=== PATIENT | female | born 1990 ===

== ENCOUNTER 2019-03-14 11:17 | Observation (INO) | payer OTHER ==
[~2019-03-14] VITALS: Ht 157.5 cm; Wt 61.2 kg
[~2019-03-14 11:17] MED LIST: Bactrim Ds Tab1 EACH PO; Keflex500 MG PO
[2019-03-14 12:22] LABS: BASOPHILS ABSOLUTE AUTO 0.06 K/mm3 (0.00-0.23); BASOPHILS PERCENT AUTO 1 % (0-2); EOSINOPHILS ABSOLUTE AUTO 0.27 K/mm3 (0.00-0.68); EOSINOPHILS PERCENT AUTO 3 % (0-6); Hematocrit 40.6 % (33.0-51.0); Hemoglobin 13.3 g/dL (11.5-16.0); IMMATURE GRAN ABSOLUTE AUTO 0.02 K/mm3 (0.00-0.10); IMMATURE GRAN PERCENT AUTO 0 % (0-1); LYMPHOCYTES ABSOLUTE AUTO 1.91 K/mm3 (0.84-5.20); LYMPHOCYTES PERCENT AUTO 21 % (21-46); MONOCYTES ABSOLUTE AUTO 0.74 K/mm3 (0.16-1.47); MONOCYTES PERCENT AUTO 8 % (4-13); Mean Corpuscular HGB 30.9 pg (26.0-34.0); Mean Corpuscular HGB Conc 32.8 g/dL (31.5-36.5); Mean Corpuscular Volume 94 fL (80-100); Mean Platelet Volume 8.8 fL (9.1-12.4); NEUTROPHILS ABSOLUTE AUTO 6.06 K/mm3 (1.96-9.15); NEUTROPHILS PERCENT AUTO 67 % (41-73); Platelet Count 283 K/mm3 (150-400); RDW Coefficient Variation 13.2 % (11.7-14.2); RDW Standard Deviation 46.3 fL (35.1-46.3); Red Blood Cell Count 4.31 M/mm3 (3.80-5.20); White Blood Cell Count 9.06 K/mm3 (4.00-11.30)
[2019-03-14 12:39] LABS: Alanine Aminotransfer (ALT/SGP 58 U/L (12-78); Albumin/Globulin Ratio 0.8 (0.8-1.8); Alk Phos 87 U/L (50-136); Anion Gap 7 mmol/L (6-16); Aspartate Aminotrans (AST/SGOT 47 U/L (12-37); Bilirubin, Total 0.4 mg/dL (0.1-1.0); Blood Urea Nitrogen 12 mg/dL (8-24); Bun/Creatinine Ratio 18.7 (12.0-20.0); CO2, Blood 26 mmol/L (21-32); Calcium, Blood 8.8 mg/dL (8.5-10.1); Chloride, Blood 105 mmol/L (98-108); Creatinine, Blood 0.64 mg/dL (0.40-1.00); Globulin, Blood 4.8 g/dL (2.2-4.0); Glomerular Filtration Rate >60 (60-); Glucose, Blood 83 mg/dL (70-99); Potassium, Blood 4.2 mmol/L (3.5-5.5); Sodium, Blood 138 mmol/L (136-145); Total Protein, Blood 8.8 g/dL (6.4-8.2)
[2019-03-15] MEDS ORDERED: CLIN300 PO (16:41)
== END 2019-03-14 21:35 | disposition left against medical advice (07) ==
LOC: ER 11:17 → MEDS 11:18
PROVIDERS: Physician Assistant; ADMIT Surgery
DX: L02.11 Cutaneous abscess of neck (principal); F11.10 Opioid abuse, uncomplicated; F15.10 Other stimulant abuse, uncomplicated; F17.210 Nicotine dependence, cigarettes, uncomplicated
CPT/HCPCS: 36415; 70491; 80053; 83605; 85025; 96365-59; 96375; 99284-25; G0378; J1885; J3370; J7030; J7120; Q9967

== ENCOUNTER 2019-03-21 16:28 | Emergency (ER) | payer OTHER ==
[~2019-03-21] VITALS: Ht 157.5 cm; Wt 61.2 kg
[~2019-03-21 16:28] MED LIST changes: +CLIN300 PO
== END 2019-03-21 17:39 | disposition home or self-care (01) ==
LOC: ER 16:28
DX: Z47.89 Encounter for other orthopedic aftercare (principal); F17.210 Nicotine dependence, cigarettes, uncomplicated
CPT/HCPCS: 99282

== ENCOUNTER 2023-05-01 04:51 | Inpatient (IN) | payer OTHER ==
[2023-05-01] VITALS (15 sets, daily range): BP systolic 92–117; BP diastolic 59–87
[~2023-05-01] VITALS: Ht 154.9 cm; Wt 66.0 kg
[2023-05-01 06:36] LABS: Source, Urine Clean Catch
[2023-05-01 06:44] LABS: Appearance, Urine Cloudy (Clear); Bilirubin, Urine Neg (Neg); Blood, Urine Neg (Neg); Color, Urine Yellow (P-Yellow); Glucose Qualitative, Urine Neg (Neg); Ketones, Urine Neg (Neg); Leukocyte Esterase, Urine Neg (Neg); Nitrite, Urine Neg (Neg); Protein, Urine Neg (Neg); Urobilinogen, Urine NORM (Normal)
[2023-05-01 06:57] LABS: Amorphous Heavy (0-Heavy); Bacteria Mod /hpf
[2023-05-01 06:59] LABS: Squamous Epithelial Cells Mod /hpf (Few)
[2023-05-01 07:00] LABS: Red Blood Cells, Urine Not Seen /hpf (0-2); White Blood Cells, Urine 0-2 /hpf (0-5)
[2023-05-01 07:31] LABS: BASOPHILS ABSOLUTE AUTO 0.08 K/mm3 (0.00-0.23); BASOPHILS PERCENT AUTO 1 % (0-2); EOSINOPHILS ABSOLUTE AUTO 0.23 K/mm3 (0.00-0.68); EOSINOPHILS PERCENT AUTO 2 % (0-6); Hemoglobin 12.3 g/dL (11.5-16.0); IMMATURE GRAN ABSOLUTE AUTO 0.16 K/mm3 (0.00-0.10); IMMATURE GRAN PERCENT AUTO 1 % (0-1); LYMPHOCYTES ABSOLUTE AUTO 1.84 K/mm3 (0.84-5.20); LYMPHOCYTES PERCENT AUTO 13 % (21-46); MONOCYTES ABSOLUTE AUTO 1.01 K/mm3 (0.16-1.47); MONOCYTES PERCENT AUTO 7 % (4-13); Mean Corpuscular HGB 29.9 pg (26.0-34.0); Mean Corpuscular HGB Conc 34.2 g/dL (31.5-36.5); Mean Corpuscular Volume 88 fL (80-100); NEUTROPHILS ABSOLUTE AUTO 10.52 K/mm3 (1.96-9.15); NEUTROPHILS PERCENT AUTO 76 % (41-73); RDW Coefficient Variation 11.8 % (11.7-14.2); RDW Standard Deviation 37.8 fL (35.1-46.3); Red Blood Cell Count 4.11 M/mm3 (3.80-5.20); White Blood Cell Count 13.84 K/mm3 (4.00-11.30)
[2023-05-01 07:33] LABS: Mean Platelet Volume 8.3 fL (9.1-12.4); Platelet Count 434 K/mm3 (150-400)
[2023-05-01 07:43] LABS: Magnesium, Blood 2.2 mg/dL (1.6-2.4)
[2023-05-01 08:06] LABS: Alanine Aminotransfer (ALT/SGP 37 U/L (12-78); Albumin, Blood 3.1 g/dL (3.4-5.0); Albumin/Globulin Ratio 0.7 (0.8-1.8); Alk Phos 81 U/L (50-136); Anion Gap 5 mmol/L (6-16); Aspartate Aminotrans (AST/SGOT 24 U/L (12-37); Bilirubin, Direct <0.1 mg/dL (0.0-0.3); Bilirubin, Indirect Unable to Calculate mg/dL (0.1-0.7); Bilirubin, Total 0.2 mg/dL (0.1-1.0); Blood Urea Nitrogen 6 mg/dL (8-24); Bun/Creatinine Ratio 8.2 (12.0-20.0); CO2, Blood 30 mmol/L (21-32); Calcium, Blood 8.8 mg/dL (8.5-10.1); Chloride, Blood 105 mmol/L (98-108); Creatinine, Blood 0.74 mg/dL (0.40-1.00); Globulin, Blood 4.6 g/dL (2.2-4.0); Glomerular Filtration Rate 110 (60-); Glucose, Blood 103 mg/dL (70-99); Potassium, Blood 4.3 mmol/L (3.5-5.5); Sodium, Blood 140 mmol/L (136-145); Total Protein, Blood 7.7 g/dL (6.4-8.2)
--- NOTE | 2023-05-01 12:50 | NUR ---
ARRIVAL TO UNIT PT ARRIVED TO VIA . ABLE TO IND TRANSFER FROM TO RESTROOM TO BED. VOIDING. AOX4, FLAT AFFECT. ANSWERS QUESTIONS VAQUELY. REPORTED 6/10 PAIN, IN RLQ, WILL MEDICATE PER EMAR. VSS. PERF APPENDICITIS, PLAN FOR LAP APPY THIS SHIFT. REPORTS NO N/V. ORIENTED TO , CALL LIGHT WITHIN REACH.
--- NOTE | 2023-05-01 15:45 | NUR ---
PT TRANSFERRED OFF UNIT FOR PROCEDURE VIA JUAN MRETHEL
--- NOTE | 2023-05-01 16:13 | NUR ---
History, Chart, Medications and Allergies reviewed before start of procedure. Lungs clear T/O to Auscultation. Patient confirms NPO status and agrees with scheduled surgery. Pre-Op teaching done. Pt verbalizes understanding.
--- NOTE | 2023-05-01 18:56 | NUR ---
POSTOP ARRIVAL PT RETURNED TO VIA GURNEY FOLLOWING LAP APPY. VSS. AOX4. DROWSY, EASILY AROUSABLE. X3 LAP SITES W/ GAUZE & TEGADERM. YANA DRAIN IN RLQ, SS FLUID. RESTING WITH HER EYES CLOSED. REPORT GIVEN.
[2023-05-02 04:16] VITALS: BP 116/77
--- NOTE | 2023-05-02 05:42 | NUR ---
UNEVENTFUL NIGHT FOR PATIENT. PATIENT RESTED QUIETLY, OCCASIONALLY CALLED FOR PAIN MEDICATION. A/OX4, SPEECH WAS VERY MUMBLED, RARELY OPENED EYES DURING CONVERSATION. PATIENT WAS ABLE TO EXPRESS NEEDS, REQUESTED BEDPAN DUE TO ANESTHESIA MAKING HER FEEL LETHARGIC. YANA DRAIN TO LLQ OUTPUT SLOWED DOWN THE NIGHT WENT ON. VSS, CALL LIGHT WITHIN REACH, WILL CONTINUE TO MONITOR.
[2023-05-02 07:06] VITALS: BP 111/71
--- NOTE | 2023-05-02 09:20 | NUR ---
CARE GIVEN TO ULYSSES LEMONS.
--- NOTE | 2023-05-02 09:20 | NUR ---
AFTER GETTING REPORT FROM JOSE ARORA THIS NURSE IS ASSUMING CARE.
[2023-05-02 14:30] VITALS: BP 101/66
[2023-05-02 20:04] VITALS: BP 119/85
[2023-05-02 20:08] VITALS: BP 137/64
[2023-05-03 04:38] VITALS: BP 105/73
--- NOTE | 2023-05-03 05:04 | NUR ---
EOS NOTE PATIENT A/OX4, DROWSY THROUGHOUT THE NIGHT BUT ABLE TO MAKE NEEDS KNOWN. USED THE CALL LIGHT APPROPRIATELY, ASKED FOR PAIN MEDICATION TWICE. YANA EMPTIED ONCE AT EOS FOR A TOTAL OUTPUT FOR PM SHIFT OF 40ML. SURGICAL SITES ARE C/D/I, EXPRESSED THAT SHE WAS HOPING TO DC TODAY. VSS.
[2023-05-03 07:16] VITALS: BP 103/74
--- NOTE | 2023-05-03 10:34 | NUR ---
"Spiritual Care | Nurse request. Pt. is awake in bed and welcomes my visit. Pt. is a little unsettled about the segmental paver installer visit, but verbalizes graciously that she feels bloated and not up to a visit at this time. Pt. agreed to have this segmental paver installer visit later in the day. Updated the floor TRANSMISSION TECHNICIAN, and will remain available to the Pt."
[2023-05-03 14:51] VITALS: BP 112/83
[2023-05-03 18:52] VITALS: BP 122/89
[2023-05-04 04:33] VITALS: BP 99/63
--- NOTE | 2023-05-04 06:17 | NUR ---
EOS NOTE: PATIENT A/OX4, MAEE, AMBULATED HALLS X2, SHOWERED, EXPRESSED MILD DISCOMFORT BUT NO PAIN. YANA DRESSING C/D/I WNL. RESTED QUIETLY THROUGH THE NIGHT AND AMBULATED THROUGHOUT THE ROOM INDEPENDENTLY. NO BM'S BUT DID PASS GAS, MILD DISTENTION TO ABDOMEN NOTED. CONSISTENT WITH PREVIOUS SHIFTS DISTENTION, NO CHANGES NOTED. VSS. PATIETN IS HOPEFUL TO DC TODAY.
--- NOTE | 2023-05-04 06:57 | NUR ---
04/823 SHIFT SUMMARY PT SHOWED LITTLE IMPROVEMENT T/O SHIFT. SOAP SUDS ENEMA DONE AT APRX 1300, PT HAD 2 SMALL LIQUID STOOL FOLLOWING, MORE CLEAR IN COLOR THAN BROWN. BT HYPOACTIVE T/O SHIFT. PT INDEPENDENT IN ROOM. SLEPT MOST OF AFTERNOON. DID NOT WALK THIS SHIFT OTHER THAN IN ROOM DUE TO LETHARGY. DURING BEDSIDE REPORT NOC RN AND THIS RN EDUCATED ON NEED TO GET UP T/O NOC, PT VERBALIZED UNDERSTANDING PT VOIDING LARGE AMT W/O DIFFICULTY X'S 3.
[2023-05-04 06:59] VITALS: BP 96/61
--- NOTE | 2023-05-04 08:06 | NUR ---
PT C/O INCREASED LUQ PAIN THAT IS WORSE WHEN SHE PUTS PRESSURE ON L FOOT. ABD SLIGHTLY LESS DISTENDED FROM EXAM AT END OF SHIFT. PT STATES THAT HAS HAD NO MORE BM'S FOLLOWING ENEMA YESTERDAY. PT MEDICATED WITH 1 NORCO AT TIME OF ASSESSMENT FOR PAIN, EDUCATED ON OPIATES AND RISK FOR CONSTIPATION, PT VERBALIZED UNDERSTANDING. PT GIVEN MIRALAX AND PRUNE JUICE.
--- NOTE | 2023-05-04 17:41 | NUR ---
SHIFT SUMMARY PT DID APPEAR MORE INTERACTIVE WITH STAFF THIS AM. TOLERATING A FEW BITES OF EGGS BUT DOES STATE FEELING MORE BLOATED FOLLOWING. LUNCH PT TOOK FEW BITES OF FULL LIQUID DIET AGAIN FEELING BLOATED. PT DID HAVE C/O INCREASED PAIN FOLLOWIN LUNCH ALTHOUGH IT DID PRESENT MORE ANXIETY-RESTLESS LEGS, TEARFUL AT APROX 1400 FOLLOWING VISIT WITH FRIEND, DID APPEAR TO BE DISCUSSING LIVING SITUATION AND UPCOMING EVICTION FROM HOME DUE TO [facility] HOME. DR SHAW NOTIFIED AND ONE TIME DOSE PO VALIUM 2.5MG GIVEN. PT ASSISTED WITH FULL SHOWER, WALKED APROX 50 FEET SBA, WC TO [facility] WITH THIS RN, OUTSIDE FOR APROX 10 MIN, DID APPEAR MORE POSITIVE WHILE TALKING OUTSIDE. UPON RETURN TO ROOM PT ASSITED TO BED. PT EDUCATED ON THE NEED TO CONTINUE TO ADVANCE DIET SLOWLY AND CONTINUE TO AMBULATE TO PROMOTE GASTRIC MOTILITY.
--- NOTE | 2023-05-04 18:48 | NUR ---
PT PASSING LARGE AMT FLATUS, SMALL LIQUID BM.
--- NOTE | 2023-05-04 19:46 | NUR ---
1899 THIS RN TO ROOM WITH NOC RN. PT FOUND SEDATED, UNRESPONSWIVE TO VERBAL STIMULI BUT ATTEMPTING TO TALK. NARCAN OVERRIDE, RN BACK TO ROOM PT STATES "YOU DO NOT HAVE TO NARCAN ME" APPEARS MORE AWAKE. BELONGINGS TAKEN TO DESK, PT POCKETS SEARCHED AND NO SUBSTANCES FOUND. THIS RN BACK TO ROOM ALONE, ASKED PT WHAT SHE TOOK. PT STATES "FENTANYL, I HAVE BEEN TAKING A LITTLE SINCE I GOT HERE TO KEEP FROM GETTING SICK" DR SHAW NOTIFIED, ORDER TO GIVE IV FENTYNAL TO TREAT SX. PT AGREEABLE WITH PLAN. NOC RN NOTIFIED, ORDER UPDATED IN COMPUTER. PT IS TEARFUL, APPOLOGETIC. IS MORE ALERT, ANSWERS QUESTIONS APPROPRIATLY AT THIS TIME. RN SUPER NOTIFIED.
[2023-05-04 20:35] VITALS: BP 95/59
--- NOTE | 2023-05-05 03:43 | NUR ---
SHIFT SUMMARY NO ACUTE CHANGES OVERNIGHT, PT HAS RESTED MOST OF THE NIGHT AND HAS DENIED NEEDS WHEN ASKED. PT HAS POSITIVE DRUG HISTORY, WHEN WE ROUNDED ON PT DURING SHIFT CHANGE PT WAS FOUND UNRESPONSIVE BUT CAME TOO SHORTLY AFTER, PT REPORTS THAT SHE HAD USED. DR. SHAW AND NURSING BALL SHAGGER WERE NOTIFIED BY DAYSHIFT RN. PLEASE SEE PREVIOUS NURSE NOTE FROM MARISA RN FOR FURTHER DETAILS. PT HAS HAD NO OTHER ACUTE EVENTS SINCE RECEIVING REPORT AND ASSUMING CARE. PT HAS HAD NO WITHDRAWAL SYMPTOMS THIS SHIFT. NO ANXIETY OR AGITATION. SHE HAS BEEN VERY DROWSY BUT AWAKES EASILY TO VERBAL STIMULI. EFFECT IS FLAT AND WITHDRAWN. YANA DRAIN WITH SEROUS OUTPUT. DRESSING TO ABD C/D/I. PT DOES NOT REPORT PAIN. TOLERATING FULL LIQUID DIET. NO N/V. IV ANTIBIOTICS INFUSED OVERNIGHT. PLAN IS FOR REMOVAL OF YANA DRAIN AND DISCHARGE TODAY.
[2023-05-05 04:04] VITALS: BP 106/67
--- NOTE | 2023-05-05 07:35 | NUR ---
ANXIETY PT REPORTING SOME ANXIETY THIS SHIFT MORNING AT SHIFT CHANGE, SHE IS TEARFUL. PRIOR TO THIS TIME SHE HAD BEEN DROWSY AND SLEEPING T/O THE NIGHT AND DENIED NEEDS WHEN ASKED. MEDICATED WITH PO VALIUM, PT REPORTING THAT IT IS INEFFECTIVE. DAYSHIFT RN NOTIFIED AND WILL TREAT FURTHER PER EMAR ORDERS.
--- NOTE | 2023-05-05 08:33 | NUR ---
PATIENT LEFT AMA PT LEFT AMA AT 0832. SURGEON SPOKE WITH PT THIS AM AND EXPLAINED THAT HE WOULD PREFER FOR HER TO STAY IN ORDER TO AVOID INFECTION AND POTENTIAL COMPLICATIONS. 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 CONSULTED NURSING DIALYSIS PATIENT CARE TECHNICIAN AND SHIPPING ASSOCIATE SPOKE WITH PT. PT STATED THAT SHE WOULD LIKE HER STUFF AND TO LEAVE TO GO SMOKE. SHIPPING ASSOCIATE SAID THAT THIS WOULD NOT BE POSSIBLE AND OFFERED ALTERNATIVES SUCH THE PATCH. PT STATED THAT SHE WOULD STILL LIKE TO LEAVE. WENT OVER AMA PAPER WORK WITH PT. ADVISED THAT DR. SHAW WOULD LIKE HER TO STAY BECAUSE SHE IS AT RISK OF ILEUS AND FURTHER INFECTION. ADVISED THAT IT WOULD BE MORE BENEFICIAL TO STAY AND THAT WE COULD TREAT HER WITHDRAWAL SYMPTOMS AND ANXIETY. PT STILL DECIDED TO LEAVE AMA. IV REMOVED, BELONGINGS RETURNED TO PT AND WRITTEN PRESCRIPTION FOR ABX. PATIENT WALKED HERSELF OUT.
== END 2023-05-05 08:41 | disposition left against medical advice (07) | DRG 340 ==
LOC: ER 04:51 → SURS 04:52
PROVIDERS: Student in an Organized Health Care Education/Training Program; ADMIT Surgery
PROC: 0W9G3ZZ Drainage of Peritoneal Cavity, Percutaneous Approach (ICD-10-PCS; 2023-05-01)
PROC: 0DTJ4ZZ Resection of Appendix, Percutaneous Endoscopic Approach (ICD-10-PCS; principal; 2023-05-01 13:15)
DX: K35.33 Acute appendicitis with perforation, localized peritonitis, and gangrene, with abscess (principal); F17.290 Nicotine dependence, other tobacco product, uncomplicated; K59.00 Constipation, unspecified; F15.11 Other stimulant abuse, in remission; Z53.29 Procedure and treatment not carried out because of patient's decision for other reasons; Z86.19 Personal history of other infectious and parasitic diseases; Z86.14 Personal history of Methicillin resistant Staphylococcus aureus infection
CPT/HCPCS: 74177; 80048; 80076; 81001; 81025; 83605; 83690; 83735; 85025; 87040; 87086; 88304; 88341; 88342; 96361; 96365-59; 96375; 99285-25; A9270; J1100; J1170; J1790; J1885; J2250; J2270; J2310; J2405; J2543; J2704; J2795; J3010; J7030; J7050; J7120; Q9967

== ENCOUNTER 2023-05-07 23:34 | Inpatient (IN) | payer OTHER ==
[~2023-05-07] VITALS: Ht 160 cm; Wt 67.7 kg
[2023-05-08] MEDS ORDERED: AMOX-CLAV 875-1 EAC5 PO (01:06)
[2023-05-08 02:35] LABS: Albumin/Globulin Ratio 0.7 (0.8-1.8); Bilirubin, Total 0.4 mg/dL (0.1-1.0); Bun/Creatinine Ratio 7.5 (12.0-20.0); Calcium, Blood 8.7 mg/dL (8.5-10.1); Creatinine, Blood 0.67 mg/dL (0.40-1.00); Globulin, Blood 4.5 g/dL (2.2-4.0); Potassium, Blood 3.9 mmol/L (3.5-5.5); Total Protein, Blood 7.5 g/dL (6.4-8.2)
[2023-05-08 02:49] LABS: BASOPHILS ABSOLUTE AUTO 0.04 K/mm3 (0.00-0.23); BASOPHILS PERCENT AUTO 1 % (0-2); EOSINOPHILS ABSOLUTE AUTO 0.36 K/mm3 (0.00-0.68); EOSINOPHILS PERCENT AUTO 5 % (0-6); Hematocrit 35.3 % (33.0-51.0); Hemoglobin 11.9 g/dL (11.5-16.0); IMMATURE GRAN ABSOLUTE AUTO 0.08 K/mm3 (0.00-0.10); IMMATURE GRAN PERCENT AUTO 1 % (0-1); LYMPHOCYTES ABSOLUTE AUTO 2.29 K/mm3 (0.84-5.20); LYMPHOCYTES PERCENT AUTO 29 % (21-46); MONOCYTES ABSOLUTE AUTO 0.71 K/mm3 (0.16-1.47); MONOCYTES PERCENT AUTO 9 % (4-13); Mean Corpuscular HGB 30.3 pg (26.0-34.0); Mean Corpuscular HGB Conc 33.7 g/dL (31.5-36.5); Mean Corpuscular Volume 90 fL (80-100); Mean Platelet Volume 8.5 fL (9.1-12.4); NEUTROPHILS ABSOLUTE AUTO 4.39 K/mm3 (1.96-9.15); NEUTROPHILS PERCENT AUTO 56 % (41-73); Platelet Count 419 K/mm3 (150-400); RDW Standard Deviation 38.9 fL (35.1-46.3); Red Blood Cell Count 3.93 M/mm3 (3.80-5.20); White Blood Cell Count 7.87 K/mm3 (4.00-11.30)
[2023-05-08 08:51] VITALS: BP 117/91
--- NOTE | 2023-05-08 09:56 | NUR ---
PT ARRIVED TO UNIT AT APROX 0900 FROM ER. PT IS A/O X'S 4. C/O INCREASED ABD PAIN AND BLOATED. ABD MOD DISTENTION. NO TENDERNESS W/PALPATION. PT REPORTS MULTIPLE BM'S SINCE DC. PT LUNGS DIM IN BASES. DR JETT IN FOR CONSULT. NEW DRAIN SPONGES PLACED ON YANA AND 30ML SS DRAINAGE EMPTIED. PT IS VERY CONCERNED WITH GETTING "DOPE SICK". WILL CONTACT MD FOR ORDERS TO HELP WITH SX OF WITHDRAWL WHILE PT IS HERE.
[2023-05-08 14:22] VITALS: BP 121/81
--- NOTE | 2023-05-08 14:24 | NUR ---
"Spiritual Care | nurse request Pt. is awake in bed and welcomes my visit. Pt. is pleasant but unsettled about her recovery and what it means in her life. Listen with empathy and a calming presence. Pt. verbalizes that while she in not religous, she is grateful for the spiritual care visit and appreciates being able to talk to someone."
--- NOTE | 2023-05-08 19:19 | NUR ---
SHIFT SUMMARY PT HAS CONTINUED TO SHOW IMPROVEMENT WITH ABD PAIN. PT AGGITATED AND ANXIOUS T/O SHIFT, MEDICATED FOR ANXIETY W/XANEX W/LITTLE EFFECT. PLAN TO CONTINUE IV ABX.
[2023-05-08 20:16] VITALS: BP 115/81
--- NOTE | 2023-05-08 20:35 | NUR ---
HOSPITALIST CALL PLACED TO HOSPITALIST D/T PATIENT WANTING TO LEAVE AMA R/T WITHDRAWL SYMPTOMS AND PAIN CONTROL. ORDER OBTAINED FOR OXYCODONE 5MG Q6, REQUESTED ALTERNATIVE MEDS TO ASSIST WITH COMFORT/ DETOX SYMPTOMS, NO OTHER ORDERS AT THIS TIME.
--- NOTE | 2023-05-09 03:02 | NUR ---
HOSPITALIST PT NOTED TO BE PROFUSELY SWEATING, BODILY SHAKES, AND INCREASING ANXIETY. PT STATES SHE FEELS IF SHE IS "DYING" AND THAT SHE IS "SO SICK AND GOING THROUGH WITHDRAWLS" AND THAT IT IS "TOO LATE TO TRY TO FIX IT". PT REPORTING SHE IS "READY TO GET OUT" AND STARTED PACKING HER BELONINGS TO LEAVE AMA. ATTEMPTED TO DISCUSS WITH PT THE IMPORTANCE OF STAYING INHOUSE TO RECIEVE ABX THERAPY AND FURTHER TX FOR HER INFECTION. PT MINIMALLY RESPONSIVE, UNABLE TO FOCUS ON THE CONVORSATION D/T HER WITHDRAWLS. CALL PLACED TO HOSPITALIST, ORDER OBTAIN FOR 0.5 MG ATIVAN. PT UNWILLING TO TAKE THIS MEDICATION, STATES HER LATE PARTNER OVERDOSED ON THIS MEDICATION. CHARGE NURSE NOTIFIED, HOSPITALIST UPDATED. OBTAINED OTD OF 50 MIKES OF FENT. PT STATED SHE WOULD TRY THE OTD AND "SEE HOW SHE FELT". SUPPORT AND EDUCATION PROVIDED, PT AGREEABLE TO STAY AT THIS TIME. PLAN TO CALL HOSPITALIST WITH FURTHER CONCERNS.
--- NOTE | 2023-05-09 03:34 | NUR ---
LEAVING AMA PATIENT STATED SHE FELT BETTER AFTER THE ONE TIME DOSE OF 50 MIKES OF FENT, BUT THAT SHE STILL WANTED TO LEAVE. PATIENT EDUCATED ABOT THE BENEFITS AND RISKS OF LEAVING AMA, SUCH WORSENING INFECTION OR . PATIENT STATED THAT SHE UNDERSTOOD AND WOULD RETURN TO THE ER IF SHE STARTED FEELING SICK. THE IV LINE WAS REMOVED. PT VERBALIZED THAT SHE HAS HER HOME ABX AND PLANS TO TAKE THEM 2X A DAY. THE PATIENT GATHERED HER BELONGINGS AND LEFT THE UNIT.
== END 2023-05-09 03:36 | disposition left against medical advice (07) | DRG 373 ==
LOC: ER 23:34 → SURS 05-08 06:27
PROVIDERS: Student in an Organized Health Care Education/Training Program; ADMIT Internal Medicine
DX: K65.1 Peritoneal abscess (principal); G89.18 Other acute postprocedural pain; D3A.8 Other benign neuroendocrine tumors; B19.20 Unspecified viral hepatitis C without hepatic coma; F15.11 Other stimulant abuse, in remission; F17.210 Nicotine dependence, cigarettes, uncomplicated; Z53.29 Procedure and treatment not carried out because of patient's decision for other reasons; Z86.14 Personal history of Methicillin resistant Staphylococcus aureus infection; Z86.19 Personal history of other infectious and parasitic diseases; Z79.2 Long term (current) use of antibiotics; Z90.49 Acquired absence of other specified parts of digestive tract; Z91.148 Patient's other noncompliance with medication regimen for other reason
CPT/HCPCS: 74177; 80053; 83605; 85025; 96361; 96365-59; 96366; 96367; 96375; 99284-25; A9270; J1885; J2543; J3010; J3370; J7030; J7050; Q9967

== ENCOUNTER 2023-05-09 07:09 | Emergency (ER) | payer OTHER ==
[~2023-05-09] VITALS: Ht 154.9 cm; Wt 65.8 kg
[~2023-05-09 07:09] MED LIST changes: +AMOX-CLAV 875-1 EAC5 PO
[2023-05-09 07:36] VITALS: BP 107/74
== END 2023-05-09 17:33 | disposition left against medical advice (07) ==
LOC: ER 07:09
DX: K35.33 Acute appendicitis with perforation, localized peritonitis, and gangrene, with abscess (principal); F15.90 Other stimulant use, unspecified, uncomplicated; F11.90 Opioid use, unspecified, uncomplicated; F17.290 Nicotine dependence, other tobacco product, uncomplicated
CPT/HCPCS: 99283